=== PATIENT | male | born 1970 | race Caucasian/White ===

== ENCOUNTER 2020-08-23 13:15 | Inpatient (IN) | payer OTHER ==
[~2020-08-23] VITALS: Ht 170.2 cm; Wt 50.3 kg
--- NOTE | 2020-08-23 13:20 | NUR ---
ELISEO LEVY [facility],DISLODGED SUPRAPUBIC CATHETER 1 1/2 HR COAL PULVERIZER OPERATOR. ALERT AND ORIENTED X3. DENIES PAIN. BLADDER SOFT AND NON-DISTENDED. WILL CONTINUE TO MONITOR THE PATIENT.
--- NOTE | 2020-08-23 13:40 | NUR ---
SEEN AND EXAMINED BY .
--- NOTE | 2020-08-23 13:49 | NUR ---
CAVITY PUMP OPERATOR AT BEDSIDE FOR XRAY.
[2020-08-23 14:05] LABS: BASOPHILS # (AUTO) 0.2 /CMM (0.0-0.2); BASOPHILS % (AUTO) 2.2 % (0.0-2.0); EOSINOPHILS % (AUTO) 3.8 % (0.0-6.0); HEMATOCRIT 35 % (39-51); HEMOGLOBIN 10.9 g/dL (13.5-17.5); LYMPHOCYTES # (AUTO) 1.6 /CMM (0.8-4.8); LYMPHOCYTES % (AUTO) 21.1 % (20.0-44.0); MEAN CORPUSCULAR HGB CONC 31 g/dl (31.0-36.0); MEAN CORPUSCULAR VOLUME 100 fL (80-96); MONOCYTES # (AUTO) 1.2 /CMM (0.1-1.30); MONOCYTES % (AUTO) 16.3 % (2.0-12.0); NEUTROPHILS # (AUTO) 4.2 /CMM (1.8-8.9); NEUTROPHILS % (AUTO) 56.6 % (43.0-81.0); PLATELET COUNT (AUTO) 314 /CMM (150-450); RED BLOOD CELL COUNT(AUTO) 3.53 MIL/uL (4.5-6.0); WHITE BLOOD COUNT (AUTO) 7.4 K/uL (4.3-11.0)
[2020-08-23] MEDS ORDERED: DARB25DI SQ (14:10)
[2020-08-23] MEDS ORDERED: ATOR40TA PO (14:10)
[2020-08-23] MEDS ORDERED: METO25TA6 PO (14:10)
[2020-08-23] MEDS ORDERED: ACET325T53 PO (14:10)
[2020-08-23] MEDS ORDERED: INSU100V39 SQ (14:10)
[2020-08-23] MEDS ORDERED: MULT-439 PO (14:10)
[2020-08-23] MEDS ORDERED: ASPI-1169 PO (14:10)
[2020-08-23] MEDS ORDERED: METF-440 PO (14:10)
[2020-08-23] MEDS ORDERED: CRAN425C6 PO (14:10)
[2020-08-23] MEDS ORDERED: SIME80TA15 PO (14:10)
[2020-08-23] MEDS ORDERED: OXYC5CAP18 PO (14:10)
[2020-08-23] MEDS ORDERED: SEVE800T8 PO (14:10)
[2020-08-23] MEDS ORDERED: AMIN887L PO (14:10)
[2020-08-23] MEDS ORDERED: ASCO500C17 PO (14:10)
[2020-08-23] MEDS ORDERED: DEXT15DR6 OP (14:10)
[2020-08-23] MEDS ORDERED: ZINC220T4 PO (14:10)
[2020-08-23] MEDS ORDERED: ERGO500014 PO (14:10)
--- NOTE | 2020-08-23 14:11 | NUR ---
CALLED NURSING SUP FOR M/S BED.
[2020-08-23 14:14] LABS: CALCIUM, SERUM 8.8 mg/dL (8.5-10.1); CREATININE 3.6 mg/dL (0.6-1.3)
--- NOTE | 2020-08-23 14:30 | NUR ---
BED ASSIGNED= 107
--- NOTE | 2020-08-23 14:55 | NUR ---
ROOM GIVEN 107
--- NOTE | 2020-08-23 14:56 | NUR ---
CALLED EVAN FOR REPORT RN IS ON BREAK CALL BACK IN 15MINS
--- NOTE | 2020-08-23 15:23 | NUR ---
REPORT GIVEN TO MOHIT VALERO FOR ANA.
[2020-08-23] MEDS ORDERED: ONDANSETRON HCL/PF 4 MG/2 ML VIAL IVP PRN (17:00)
[2020-08-23] MEDS ORDERED: DEXTROSE 50%-WATER 50 ML DISP.SYRIN IV PRN ×2 (17:00→17:30)
[2020-08-23] MEDS ORDERED: ACETAMINOPHEN 325 MG TABLET PO PRN (17:00)
[2020-08-23] MEDS ORDERED: INSULIN REGULAR, HUMAN 100 UNIT/ML 3 ML VIAL SQ PRN (17:00)
[2020-08-23] MEDS ORDERED: METFORMIN 500 MG TABLET PO SCH (17:00)
[2020-08-23] MEDS ORDERED: Z GUARD REMEDY 2 OZ OINT TP PRN (17:00)
[2020-08-23] MEDS ORDERED: ENOXAPARIN SODIUM 40 MG/0.4 ML DISP.SYRIN SQ SCH (17:00)
[2020-08-23] MEDS ORDERED: BLOOD SUGAR DIAGNOSTIC 1 EACH STRIP IN SCH (18:00)
[2020-08-23 18:24] VITALS: BP 177/80
[2020-08-23] MEDS: BLOOD SUGAR DIAGNOSTIC 1 EACH STRIP IN SCH ×2 (18:27→22:04)
[2020-08-23] MEDS: SEVELAMER CARBONATE 800 MG TABLET PO SCH (18:32)
[2020-08-23] MEDS: HEPARIN SODIUM, PORCINE 5000 UNITS/1 ML VIAL SQ SCH (18:33)
[2020-08-23] MEDS: INSULIN ASPART/LISPRO 100 UNIT/ML CARTRIDGE SQ PRN ×2 (18:33→22:17)
[2020-08-23] MEDS: oxyCODONE IR immediate release 5 MG PO PRN (18:41)
--- NOTE | 2020-08-23 19:17 | NUR ---
PATIENT RECEIVED FROM ER AT 3:45 PM, VITAL SIGNS TAKE, SKIN ASSESSMENT COMPLETED. PATIENT SUPRAPUBIC CATHETER SITE CLOSED AND GAUZE DRESSING APPLIED. RIGHT AC # 18 INTACT AND PATENT. SAFETY PRECAUTIONS IMPLEMENTED, SIDE RAILS UP X2, CALL LIGHT WITHIN REACH, WILL ENDORSE CARE TO UPCOMING SHIFT.
[2020-08-23 20:00] VITALS: BP 156/79
--- NOTE | 2020-08-23 20:00 | NUR ---
RN NOTE RECEIVED PT IN BED A/A/O X3, PT IS ON RA SATING 96%, HAS UNLABORED BREATHING. SAFETY MEASURES IN PLACE..
[2020-08-23] MEDS: METOPROLOL TARTRATE 25 MG TABLET PO SCH (20:56)
[2020-08-23] MEDS ORDERED: ATORVASTATIN 40 MG TABLET PO SCH (22:00)
[2020-08-24 04:00] VITALS: BP 156/79
[2020-08-24 06:33] LABS: BASOPHILS # (AUTO) 0.1 /CMM (0.0-0.2); BASOPHILS % (AUTO) 1.8 % (0.0-2.0); EOSINOPHILS % (AUTO) 3.8 % (0.0-6.0); HEMATOCRIT 33 % (39-51); HEMOGLOBIN 10.6 g/dL (13.5-17.5); LYMPHOCYTES # (AUTO) 1.9 /CMM (0.8-4.8); LYMPHOCYTES % (AUTO) 23.9 % (20.0-44.0); MEAN CORPUSCULAR HGB CONC 32 g/dl (31.0-36.0); MEAN CORPUSCULAR VOLUME 99 fL (80-96); MONOCYTES # (AUTO) 1.4 /CMM (0.1-1.30); MONOCYTES % (AUTO) 17.5 % (2.0-12.0); NEUTROPHILS # (AUTO) 4.2 /CMM (1.8-8.9); PLATELET COUNT (AUTO) 286 /CMM (150-450); RED BLOOD CELL COUNT(AUTO) 3.33 MIL/uL (4.5-6.0); WHITE BLOOD COUNT (AUTO) 7.8 K/uL (4.3-11.0)
[2020-08-24 07:07] LABS: CALCIUM, SERUM 8.8 mg/dL (8.5-10.1); CREATININE 4.3 mg/dL (0.6-1.3); MAGNESIUM 3.2 mg/dL (1.8-2.4); PHOSPHORUS 5.5 mg/dL (2.5-4.9); POTASSIUM 4.6 mmol/L (3.5-5.1)
--- NOTE | 2020-08-24 07:25 | NUR ---
RN NOTE REPORT GIVEN TO ONCOMING SHIFT FOR ANA.
[2020-08-24] MEDS: BLOOD SUGAR DIAGNOSTIC 1 EACH STRIP IN SCH ×2 (07:50→12:31)
--- NOTE | 2020-08-24 07:56 | NUR ---
RN NOTES PATIENT EATING WELL, NO ASPIRATIONS NOTED, BS - 97 , SAFETY MEASURES IN PLACE, CALL LIGHT IN REACH, ABLE TO MAKE NEEDS KNOWN, WILL CONTINUE TO MONITOR.
[2020-08-24 08:00] VITALS: BP 154/87
[2020-08-24] MEDS: SEVELAMER CARBONATE 800 MG TABLET PO SCH ×2 (08:32→12:30)
[2020-08-24 08:33] VITALS: BP 154/87
[2020-08-24] MEDS: METOPROLOL TARTRATE 25 MG TABLET PO SCH (08:33)
[2020-08-24] MEDS: HEPARIN SODIUM, PORCINE 5000 UNITS/1 ML VIAL SQ SCH (08:40)
[2020-08-24] MEDS: oxyCODONE IR immediate release 5 MG PO PRN (12:41)
[2020-08-24 12:58] LABS: EOSINOPHILS % (MANUAL) 5 % (0-4); LYMPHOCYTES % (MANUAL) 25 % (16-48); MONOCYTES % (MANUAL) 11 % (0-11.0); NEUTROPHILS % (MANUAL) 59 (42-76)
--- NOTE | 2020-08-24 12:58 | NUR ---
PATIENT DISCHARGED, IN STABLE CONDITION, WITH AMBULANCE STAFF TO [facility]. PATIENT IN NO ACUTE DISTRESS. PATIENT IV ACCESS REMOVED. PATIENT BELONGINGS GIVEN. PATIENT DISCHARGE INSTRUCTIONS/PACKET GIVEN.
[2020-08-25] MEDS ORDERED: ASPIRIN 81 MG TAB.CHEW PO SCH (09:00)
[2020-08-27] MEDS ORDERED: ERGOCALCIFEROL (VITAMIN D 2) 50,000 UNIT CAPSULE PO SCH (09:00)
== END 2020-08-24 13:01 | DRG 466 ==
LOC: ER 13:22 → MEDSG1 15:32
PROVIDERS: ADMIT Nurse Practitioner Acute Care; ATTEND Nurse Practitioner Acute Care
PROC: 0T2BX0Z Change Drainage Device in Bladder, External Approach (ICD-10-PCS; principal; 2020-08-23)
DX: T83.098A Other mechanical complication of other urinary catheter, initial encounter (principal); J90 Pleural effusion, not elsewhere classified; E11.22 Type 2 diabetes mellitus with diabetic chronic kidney disease; I12.0 Hypertensive chronic kidney disease with stage 5 chronic kidney disease or end stage renal disease; Y73.8 Miscellaneous gastroenterology and urology devices associated with adverse incidents, not elsewhere classified; N18.6 End stage renal disease; D63.1 Anemia in chronic kidney disease; Z99.2 Dependence on renal dialysis; Z20.822 Contact with and (suspected) exposure to COVID-19; Z91.041 Radiographic dye allergy status; Z88.0 Allergy status to penicillin; Z91.040 Latex allergy status; Z90.79 Acquired absence of other genital organ(s); I70.0 Atherosclerosis of aorta; Z89.512 Acquired absence of left leg below knee
CPT/HCPCS: 36415; 71045-TC; 80048-TC; 80061-TC; 82962-TC; 83735-TC; 84100-TC; 85025-TC; 85730-TC; 87081-TC; A6403; C9803; G0378; J1644; J1815; U0003

== ENCOUNTER 2020-08-28 07:00 | Inpatient (IN) | payer OTHER ==
[~2020-08-28] VITALS: Ht 170.2 cm; Wt 50.8 kg
[~2020-08-28 07:00] MED LIST: ACET325T53 PO; AMIN887L PO; ASCO500C17 PO; ASPI-1169 PO; ATOR40TA PO; CRAN425C6 PO; DARB25DI SQ; DEXT15DR6 OP; ERGO500014 PO; INSU100V39 SQ; METF-440 PO; METO25TA6 PO; MULT-439 PO; OXYC5CAP18 PO; SEVE800T8 PO; SIME80TA15 PO; ZINC220T4 PO
--- NOTE | 2020-08-28 07:10 | NUR ---
BREANNA FROM [facility] C/O SUPRAPUBIC CATHETER MALFUNCTION PER EMT, BLOODY AT SITE. PATIENT AA/OX4, BREATHING EVEN AND UNLABORED, NO SOB NOTED. NEEDS ATTENDED. DR. LOZOYA AT BEDSIDE.
--- NOTE | 2020-08-28 07:30 | NUR ---
JONES CATHETER FLUSHED WITH 100CC OF NS.
[2020-08-28] MEDS ORDERED: LIDOCAINE 2% JEL UROJET 10 ML MM ONE (07:41)
--- NOTE | 2020-08-28 08:08 | NUR ---
URINE SENT TO LAB.
[2020-08-28 08:23] LABS: BASOPHILS # (AUTO) 0.1 /CMM (0.0-0.2); BASOPHILS % (AUTO) 1.2 % (0.0-2.0); EOSINOPHILS % (AUTO) 0.8 % (0.0-6.0); HEMATOCRIT 35 % (39-51); HEMOGLOBIN 10.8 g/dL (13.5-17.5); LYMPHOCYTES # (AUTO) 1.4 /CMM (0.8-4.8); LYMPHOCYTES % (AUTO) 14.6 % (20.0-44.0); MEAN CORPUSCULAR HGB CONC 31 g/dl (31.0-36.0); MEAN CORPUSCULAR VOLUME 99 fL (80-96); MONOCYTES # (AUTO) 1.2 /CMM (0.1-1.30); MONOCYTES % (AUTO) 12.7 % (2.0-12.0); NEUTROPHILS # (AUTO) 6.5 /CMM (1.8-8.9); NEUTROPHILS % (AUTO) 70.7 % (43.0-81.0); PLATELET COUNT (AUTO) 269 /CMM (150-450); RED BLOOD CELL COUNT(AUTO) 3.51 MIL/uL (4.5-6.0); WHITE BLOOD COUNT (AUTO) 9.2 K/uL (4.3-11.0)
[2020-08-28 08:38] LABS: BILIRUBIN,URINE SMALL (NEGATIVE); COLOR,URINE RED (YELLOW); LEUKOCYTE ESTERASE ,URINE Negative (NEGATIVE); NITRITE, URINE Positive (NEGATIVE); PH,URINE 7.5 (5.0-8.0); PROTEIN,URINE >=300 mg/dl (NEGATIVE); UGLUCOSE Negative (NEGATIVE); UROBILINOGEN,URINE 0.2 EU/dL (0.2)
[2020-08-28 08:40] LABS: RBC,URINE TOO NUMEROUS TO COUN /HPF (0-2)
[2020-08-28 08:40] LABS: CALCIUM, SERUM 9.2 mg/dL (8.5-10.1); CREATININE 5.6 mg/dL (0.6-1.3); POTASSIUM 5.9 mmol/L (3.5-5.1)
[2020-08-28 08:41] LABS: BACTERIA,URINE Few /HPF (None Seen); SQUAMOUS EPITHELIAL CELL,UR 0-2 /HPF (None Seen)
[2020-08-28 08:46] LABS: ALBUMIN 3.3 g/dL (3.4-5.0); BILIRUBIN,DIRECT 0.3 mg/dL (0.0-0.2); BILIRUBIN,TOTAL 0.6 mg/dL (0.2-1.0)
[2020-08-28] MEDS ORDERED: ASCO500T10 PO (09:42)
[2020-08-28] MEDS ORDERED: LOPE2TAB25 PO (09:42)
[2020-08-28] MEDS ORDERED: CALC500T13 PO (09:42)
[2020-08-28] MEDS ORDERED: POLY15DR40 EACHEYE (09:42)
[2020-08-28] MEDS ORDERED: GABA-532 PO (09:42)
[2020-08-28] MEDS ORDERED: ERGO500014 PO (09:42)
[2020-08-28] MEDS ORDERED: DIATRIZOATE MEGLUMINE 300 ML BOTTLE UR ONE (10:01)
--- NOTE | 2020-08-28 10:59 | NUR ---
CALLED DR. SHRESTHA FOR UROLOGY CONSULT. TALKING TO DR. LOZOYA AT THIS TIME.
--- NOTE | 2020-08-28 11:43 | NUR ---
CALLED [facility] FOR HIGHER LEVEL OF CARE TRANSFER. [facility] DOES NOT HAVE A UROLOGIST.
--- NOTE | 2020-08-28 11:47 | NUR ---
PATIENT A/OX4, RESTING, NO DISTRESS NOTED. NEEDS ATTENDED.
--- NOTE | 2020-08-28 12:05 | NUR ---
CALLED AND PRESENTED TO [facility] FOR HIGHER LEVEL OF TRANSFER. THEY ARE AWAITING CT SCAN AND COVID TEST RESULTS BEFORE PRESENTING.
--- NOTE | 2020-08-28 12:32 | NUR ---
[facility] TRANSFER CALLED AND ZOE CABALLERO IS PRESENTING TO [facility]
--- NOTE | 2020-08-28 12:46 | NUR ---
PAGED UROLOGY TIME STUDY TECHNOLOGIST
--- NOTE | 2020-08-28 12:57 | NUR ---
CALLED NURSING SUP FOR M/S BED.
--- NOTE | 2020-08-28 13:24 | NUR ---
JESSICA DECLINED THE CASE.
[2020-08-28] MEDS ORDERED: ACETAMINOPHEN 325 MG TABLET PO PRN ×2 (13:30)
[2020-08-28] MEDS ORDERED: Z GUARD REMEDY 2 OZ OINT TP PRN (13:30)
[2020-08-28] MEDS ORDERED: MAG HYDROX/AL HYDROX/SIMETH 30 ML UDC PO PRN (13:30)
[2020-08-28] MEDS ORDERED: ZOLPIDEM TARTRATE 5 MG TABLET PO PRN (13:30)
[2020-08-28] MEDS ORDERED: ONDANSETRON HCL/PF 4 MG/2 ML VIAL IVP PRN (13:30)
[2020-08-28] MEDS ORDERED: CALCIUM CARBONATE 500 MG TAB.CHEW PO PRN (13:30)
[2020-08-28] MEDS ORDERED: MAGNESIUM HYDROXIDE 30 ML UDC PO PRN (13:30)
[2020-08-28] MEDS ORDERED: SIMETHICONE 80 MG TAB.CHEW PO PRN (13:30)
[2020-08-28] MEDS ORDERED: LOPERAMIDE HCL (2 MG CAP) 2 MG CAPSULE PO PRN (14:00)
[2020-08-28] MEDS ORDERED: POLYVINYL ALCOHOL 15 ML BOTTLE OP PRN (14:00)
--- NOTE | 2020-08-28 14:01 | NUR ---
NEGATIVE RAPID COVID TEST.
--- NOTE | 2020-08-28 15:09 | NUR ---
PATIENT SEEN BY DR. PEÑA.
--- NOTE | 2020-08-28 15:30 | NUR ---
ROOM 120-2
--- NOTE | 2020-08-28 15:38 | NUR ---
REPORT GIVEN TO STORMY RUEDA FOR ANA.
[2020-08-28] MEDS ORDERED: ASPIRIN 81 MG TAB.CHEW PO SCH (16:00)
--- NOTE | 2020-08-28 16:08 | NUR ---
PATIENT TRANSFERRED TO ROOM 120-2 VIA ACLS PROTOCOL. PATIENT IN STABLE CONDITION. NO DISTRESS NOTED.
[2020-08-28 17:00] VITALS: BP 140/72
[2020-08-28] MEDS: CEFTRIAXONE 1 G in IV D5W 50 ML IV SCH (17:00)
[2020-08-28] MEDS ORDERED: METFORMIN 500 MG TABLET PO SCH (17:00)
[2020-08-28] MEDS: GABAPENTIN 300 MG CAPSULE PO SCH (17:01)
[2020-08-28] MEDS: HYDROCODONE/APAP 5/325MG TABLET PO PRN (17:02)
[2020-08-28] MEDS: SEVELAMER CARBONATE 800 MG TABLET PO SCH (18:00)
--- NOTE | 2020-08-28 19:30 | NUR ---
HOT MILL OPERATOR OPENING NOTE RECEIVED PATIENT IN BED/ A/OX4. ON OXYGEN 2L.MIN VIA NASAL CANNULA,. RESPIRATIONS ARE EVEN AND UNLABORED. NO S/S SOB NOTED. NO C/O PAIN AT THIS TIME. EXTERNAL TELE MONITOR READS SINUS RHYTHM HR 91. IN NO APPARENT DISTRESS. IV ACCESS IN RAC#18 PATENT AND SALINE LOCKED. SUPRAPUBIC CATHETER IS PRESENT, DRAINING TO GRAVITY, WITH HEMATURIA. BED IS LOW ND LOCKED, HOB ELEVATED IN SEMI FOWLERS,S GISEL RIALS UP X2, CALL LIGHT WITHIN REACH. WILL CONTINUE TO MONITOR THROUGHOUT SHIFT
[2020-08-28 20:00] VITALS: BP 148/81
[2020-08-28] MEDS: ATORVASTATIN 40 MG TABLET PO SCH (22:04)
[2020-08-28] MEDS: METOPROLOL TARTRATE 25 MG TABLET PO SCH (22:05)
[2020-08-29] VITALS: BP 147/83
[2020-08-29 04:00] VITALS: BP 149/91
--- NOTE | 2020-08-29 06:58 | NUR ---
PAYROLL AUDITOR CLOSING NOTE PATIENT RESTING IN BED/ A/OX4. REMAINS ON OXYGEN 2L/MIN VIA NASAL CANNULA NO RESP DISTRESS. NO C/O PAIN. TELE MONITOR READS SINUS RHYTHM. NO DISTRESS. IV ACCESS IN RAC#18. SUPRAPUBIC CATHETER IS MAINTAINED, IRRIGATED ONLY ONCE WITH 60ML NS. BED REMAINS LOW AND LOCKED, HOB ELEVATED IN SEMI FOWLERS, SIDE RIALS UP X2, CALL LIGHT WITHIN REACH. WILL ENDORSE TO ONCOMING SHIFT.
[2020-08-29 07:24] LABS: BASOPHILS # (AUTO) 0.1 /CMM (0.0-0.2); BASOPHILS % (AUTO) 1.4 % (0.0-2.0); EOSINOPHILS % (AUTO) 1.8 % (0.0-6.0); HEMATOCRIT 32 % (39-51); HEMOGLOBIN 10.1 g/dL (13.5-17.5); LYMPHOCYTES # (AUTO) 1.6 /CMM (0.8-4.8); LYMPHOCYTES % (AUTO) 16.8 % (20.0-44.0); MEAN CORPUSCULAR HGB CONC 32 g/dl (31.0-36.0); MEAN CORPUSCULAR VOLUME 98 fL (80-96); MONOCYTES # (AUTO) 1.1 /CMM (0.1-1.30); MONOCYTES % (AUTO) 11.7 % (2.0-12.0); NEUTROPHILS # (AUTO) 6.5 /CMM (1.8-8.9); NEUTROPHILS % (AUTO) 68.3 % (43.0-81.0); PLATELET COUNT (AUTO) 220 /CMM (150-450); RED BLOOD CELL COUNT(AUTO) 3.22 MIL/uL (4.5-6.0); WHITE BLOOD COUNT (AUTO) 9.5 K/uL (4.3-11.0)
[2020-08-29 07:46] LABS: CREATININE 5.9 mg/dL (0.6-1.3); MAGNESIUM 3.2 mg/dL (1.8-2.4); PHOSPHORUS 5.9 mg/dL (2.5-4.9)
[2020-08-29 07:56] LABS: POTASSIUM 6.4 mmol/L (3.5-5.1)
--- NOTE | 2020-08-29 08:00 | NUR ---
CHIEF DEPUTY CORONER CLOSING NOTE PATIENT RESTING IN BED/ A/OX4. REMAINS ON OXYGEN 2L/MIN VIA NASAL CANNULA NO RESP DISTRESS. NO C/O PAIN. TELE MONITOR READS SINUS RHYTHM. HR 82 AT THIS TIME , NO DISTRESS. IV ACCESS IN RAC#18. SUPRAPUBIC CATHETER IS MAINTAINED STILL WITH BLOODY DRAINAGE NOTED , . BED REMAINS LOW AND LOCKED, HOB ELEVATED IN SEMI FOWLERS, SIDE RIALS UP X2, CALL LIGHT WITHIN REACH. WILL MONITOR
[2020-08-29] MEDS ORDERED: MULTIVIT W/MINERALS 1 TAB TABLET PO SCH (09:00)
[2020-08-29] MEDS: GABAPENTIN 300 MG CAPSULE PO SCH ×2 (09:00→16:32)
[2020-08-29] MEDS ORDERED: ASCORBIC ACID 500 MG TABLET PO SCH (09:00)
[2020-08-29] MEDS ORDERED: Medication Not On Formulary EA (Cranberry Extract (Cranberry) 425 MG) PO SCH (09:00)
[2020-08-29] MEDS: METOPROLOL TARTRATE 25 MG TABLET PO SCH ×2 (09:07→21:49)
[2020-08-29] MEDS: SEVELAMER CARBONATE 800 MG TABLET PO SCH ×3 (09:08→17:15)
[2020-08-29] MEDS: ZINC SULFATE 220 MG CAPSULE PO SCH (09:08)
[2020-08-29] MEDS: PROSOURCE / PROSTAT (PYXIS) 30 ML UDC PO SCH (09:12)
--- NOTE | 2020-08-29 09:37 | NUR ---
STUDENT SUPPORT ADVISOR NOTE CALLED HD NURSE ANGEL NOTIFIED K 6.4 STATED THAT WILL HAVE HD SOON ALSO C\O PAIN WHILE IRRIGATE SUPRAPUBIC CATH NOTED STILL BLEEDING, WILL INFORM DR DONATO
[2020-08-29] MEDS ORDERED: NEPRO VAN 237 ML CAN PO PRN (10:00)
--- NOTE | 2020-08-29 10:30 | NUR ---
MS RN NOTE FLASHING SUPRAPUBIC CATH BUT UNABLE TO GET URINE OUTPUT, NO URINE OUT PUT SINE 0700, WILL REPORT TO DR DONATO
--- NOTE | 2020-08-29 10:31 | NUR ---
ms rn note dr Tovar notified that k 6.4 stated that will have hd today a
--- NOTE | 2020-08-29 10:52 | NUR ---
ms rn note hd started as ordered ,consent signed for hd
[2020-08-29] MEDS: oxyCODONE IR immediate release 5 MG PO PRN (13:18)
--- NOTE | 2020-08-29 13:26 | NUR ---
ms rn note hd completed 1.6 lof fluids removed bp 142/69 hr 73
--- NOTE | 2020-08-29 13:31 | NUR ---
ms rn note dr Gauthier at bedside aware of hematuria and when flushed suprapubic cath c\o pain
--- NOTE | 2020-08-29 15:26 | NUR ---
MS RN NOTE ABLE TO FLUSH SUPRAPUBIC CATH BUT STILL WITH HEMATURIA, ALL NEEDS ATTENDED ,KEEP CLEAN DRY
[2020-08-29] MEDS: CEFTRIAXONE 1 G in IV D5W 50 ML IV SCH (16:09)
--- NOTE | 2020-08-29 18:37 | NUR ---
MS AGENCY RECRUITER CLOSING NOTES; patient is in bed alert and orientated, patient refused dinner at this time and stated he would eat later. patient has wounds in heel and left leg stump. would consult order has been placed. Suprapubic catheter flushed, 150 ml noticed of hematuria. RAC Hep Lock in place and flushed well. All needs attended and call light within reach. All safety measures in place and will continue to monitor for remainder of shift.
--- NOTE | 2020-08-29 19:35 | NUR ---
RN OPENING NOTE REC'D PT IN BED. AWAKE. A/O X 4. COOPERATIVE. PT SLIGHT HARD OF HEARING AND DIFFICULTY SEEING NOTED. PT DENIES USE OF HEARING AID/GLASSES. PT IS ON 3L VIA NASAL CANNULA, TOLERATING WELL. NO RESP DISTRESS OR SOB NOTED. BREATHING EVEN AND UNLABORED. ON MED SURG MONITORING. ASSIST WITH FEEDINGS/FLUID INTAKE. PT HAS RIGHT AC #20 IV SITE FLUSHED. LEFT AV SHUNT NOTED, NO BP OR BLOOD DRAW LEFT ARM SIGN POSTED. PT HAS LEFT BELOW KNEE AMPUTATION NOTED. OPEN WOUND, LOOSELY COVERED SECURED WITH GAUZE, WOUND CONSULT FOR TOMORROW. HAS SUPRAPUBIC CATH, HEMATURIA NOTED. MD AWARE, UROLOGIST TO FOLLOW UP. PT C/O 5/10 PAIN AT THIS TIME, DENIES NEED FOR MEDICATION WILL CONT TO MONITOR. NEEDS ATTENDED. SAFETY MEASURES IN PLACE. HOB ELEVATED. SIDE RAILS UP X2, BED LOCKED IN LOWEST POSITION WITH BED ALARM ON. CALL LIGHT WITHIN REACH WILL CONT TO MONITOR THROUGHOUT SHIFT.
[2020-08-29 20:00] VITALS: BP 155/93
--- NOTE | 2020-08-29 21:00 | NUR ---
RN NOTE UROLOGIST DR SHRESTHA WAS AT BEDSIDE FOR IRRIGATION OF THE SUPRAPUBIC CATH, HEMATURIA NOTED, ASPIRATED CLOTS/SEDIMENT. NOW CATH FLUSHES WELL, CLEAR AT THIS TIME. [place] JONES BAG PLACED. WILL CONT TO MONITOR.
[2020-08-29] MEDS ORDERED: VANCOMYCIN HCL 1 GM in IV D5W 260 ML IV ONE (21:30)
[2020-08-29] MEDS: ATORVASTATIN 40 MG TABLET PO SCH (21:49)
[2020-08-29] MEDS ORDERED: VANCOMYCIN 1 GM VIAL ONE (22:00)
[2020-08-30] MEDS: oxyCODONE IR immediate release 5 MG PO PRN (01:40)
--- NOTE | 2020-08-30 01:40 | NUR ---
RN NOTE PT C/O PAIN 02/11, GENERALIZED PAIN REQUESTS OXYCODONE AT THIS TIME. VITAL SIGNS BP 144/79 HR 73 02 SAT 99% WILL CONT TO MONITOR CLOSELY.
--- NOTE | 2020-08-30 03:35 | NUR ---
RN NOTE PT SLEEPING AT THIS TIME. NO DISTRESS NOTED. PT DEFERS BED BATH AT THIS TIME.
[2020-08-30 04:00] VITALS: BP 131/64
--- NOTE | 2020-08-30 05:13 | NUR ---
MOHIT NOTE WOUND CARE DONE Addendum: 08/30/20 at 0514 by SHIKHA JUSTIN RN DRESSING REDONE KERLIX AND GAUZE PLACED SECURED WITH PAPER TAPE ON RIGHT HEEL AND FOOT AND LEFT BKA, PENDING WOUND CONSULT FOR AM
[2020-08-30 06:36] LABS: BASOPHILS # (AUTO) 0.1 /CMM (0.0-0.2); BASOPHILS % (AUTO) 1.3 % (0.0-2.0); EOSINOPHILS % (AUTO) 2.3 % (0.0-6.0); HEMATOCRIT 31 % (39-51); HEMOGLOBIN 9.9 g/dL (13.5-17.5); LYMPHOCYTES # (AUTO) 1.5 /CMM (0.8-4.8); MEAN CORPUSCULAR HGB CONC 32 g/dl (31.0-36.0); MEAN CORPUSCULAR VOLUME 97 fL (80-96); MONOCYTES # (AUTO) 1.3 /CMM (0.1-1.30); MONOCYTES % (AUTO) 13.9 % (2.0-12.0); NEUTROPHILS # (AUTO) 6.1 /CMM (1.8-8.9); NEUTROPHILS % (AUTO) 66.5 % (43.0-81.0); PLATELET COUNT (AUTO) 210 /CMM (150-450); RED BLOOD CELL COUNT(AUTO) 3.16 MIL/uL (4.5-6.0); WHITE BLOOD COUNT (AUTO) 9.2 K/uL (4.3-11.0)
--- NOTE | 2020-08-30 06:41 | NUR ---
RN CLOSING NOTES PT REMAINS IN BED RESTING. PT STILL REMAINS ON 2L OF O2, NO S/S OF RESP DISTRESS OR SOB. ALL NEEDS ATTENDED. ALL DUE MEDICATIONS GIVEN. PT REMAINS AFEBRILE. WILL CONT TO MONITOR UNTIL END OF SHIFT, REPORT GIVEN TO BROWN EsparzaW WEB WORKER. PT TO BE TRANSPORTED AT END OF SHIFT. PT MADE AWARE, COMPLIANT.
[2020-08-30 07:19] LABS: ALBUMIN 2.9 g/dL (3.4-5.0); BILIRUBIN,TOTAL 0.7 mg/dL (0.2-1.0); CALCIUM, SERUM 8.9 mg/dL (8.5-10.1); CREATININE 4.4 mg/dL (0.6-1.3); MAGNESIUM 2.7 mg/dL (1.8-2.4); PHOSPHORUS 4.9 mg/dL (2.5-4.9); POTASSIUM 4.7 mmol/L (3.5-5.1); TOTAL PROTEIN, SERUM 8.1 g/dL (6.4-8.2)
--- NOTE | 2020-08-30 07:30 | NUR ---
RN OPENING NOTE PATIENT RECEIVED ALERT, ORIENTED. OXYGEN CONTINUES AT 2 L/MIN VIA NASAL CANNULA. NO S/S OF DISCOMFORT OR DISTRESS. WILL HAVE WOUND CONSULT LATER TODAY. NEEDS MET AT THIS TIME. WILL CONTINUE CARE PER ORDERS.
[2020-08-30 08:00] VITALS: BP 110/58
--- NOTE | 2020-08-30 08:27 | NUR ---
WOUND CARE CONSULT: PT PRESENTS WITH MULTIPLE SKIN ISSUES INCLUDING DRY ESCHAR TO RT HEEL AND DORSAL FOOT, LEFT BELOW KNEE AMPUTATION SURGICAL SITE, SACRAL INTACT DEEP TISSUE INJURY AND LEFT HIP SCAR, PRESENT ON ADMISSION. RECOMMEND DPM CONSULT. DR MCDONALD NOTIFIED OF CONSULT REQUEST. RECOMMENDATIONS MADE FOR SKIN PROTECTION. DISCUSSED WITH NURSING STAFF. PT IS ON HEATH ISOFLEX LOW AIRLOSS BED. IN AGREEMENT WITH PLAN OF CARE. Addendum: 08/30/20 at 0828 by HUMPHREY MURPHY WNDNU Amended: Links added.
[2020-08-30] MEDS: SEVELAMER CARBONATE 800 MG TABLET PO SCH ×3 (09:12→17:43)
[2020-08-30] MEDS: ZINC SULFATE 220 MG CAPSULE PO SCH (09:13)
[2020-08-30] MEDS: GABAPENTIN 300 MG CAPSULE PO SCH ×2 (09:13→17:43)
[2020-08-30] MEDS: METOPROLOL TARTRATE 25 MG TABLET PO SCH ×2 (09:13→22:09)
[2020-08-30] MEDS: PROSOURCE / PROSTAT (PYXIS) 30 ML UDC PO SCH (09:24)
[2020-08-30 15:54] VITALS: BP 144/80
[2020-08-30 16:00] VITALS: BP 114/71
[2020-08-30] MEDS: CEFTRIAXONE 1 G in IV D5W 50 ML IV SCH (17:43)
--- NOTE | 2020-08-30 18:57 | NUR ---
RN CLOSING NOTE PATIENT RESTING IN BED. NO S/S OF DISCOMFORT OR DISTRESS. ASSISTED WITH ADL'S NEEDED. MINIMAL AMOUNT OF URINE FROM SUPRAPUBIC CATHETER. WOUND CARE CONSULT COMPLETED WITH NOW ORDERS RECEIVED AND CARRIED. GOOD APPETITE. ALL MEDICATIONS GIVEN PER ORDER. NEEDS MET AT THIS TIME. WILL ENDORSE TO NIGHT NURSE FOR ANA.
[2020-08-30 20:00] VITALS: BP 146/79
[2020-08-30] MEDS: ATORVASTATIN 40 MG TABLET PO SCH (22:08)
[2020-08-30] MEDS: HYDROCODONE/APAP 5/325MG TABLET PO PRN (22:27)
[2020-08-31 06:27] LABS: BASOPHILS # (AUTO) 0.1 /CMM (0.0-0.2); BASOPHILS % (AUTO) 1.2 % (0.0-2.0); EOSINOPHILS % (AUTO) 4.9 % (0.0-6.0); HEMATOCRIT 29 % (39-51); HEMOGLOBIN 9.1 g/dL (13.5-17.5); LYMPHOCYTES # (AUTO) 1.7 /CMM (0.8-4.8); LYMPHOCYTES % (AUTO) 20.5 % (20.0-44.0); MEAN CORPUSCULAR HGB CONC 32 g/dl (31.0-36.0); MEAN CORPUSCULAR VOLUME 97 fL (80-96); MONOCYTES # (AUTO) 1.4 /CMM (0.1-1.30); MONOCYTES % (AUTO) 16.8 % (2.0-12.0); NEUTROPHILS # (AUTO) 4.7 /CMM (1.8-8.9); NEUTROPHILS % (AUTO) 56.6 % (43.0-81.0); PLATELET COUNT (AUTO) 217 /CMM (150-450); RED BLOOD CELL COUNT(AUTO) 2.94 MIL/uL (4.5-6.0); WHITE BLOOD COUNT (AUTO) 8.4 K/uL (4.3-11.0)
--- NOTE | 2020-08-31 06:50 | NUR ---
MS RN NOTES AWAKE & RESPONSIVE. NOT IN ANY DISTRESS. NO SOB NOTED. DENIES ANY PAIN OR DISCOMFORT AT THIS TIME. WITH IV-HL PATENT & INTACT. AM CARE DONE. MONITORED ACCORDINGLY. CALL LIGHT WITHIN REACH. BED IN LOWEST POSITION. SR UP X 2 FOR SAFETY. WILL ENDORSE TO NEXT SHIFT.
[2020-08-31 07:21] LABS: CALCIUM, SERUM 8.7 mg/dL (8.5-10.1); CREATININE 5.4 mg/dL (0.6-1.3); MAGNESIUM 2.7 mg/dL (1.8-2.4); PHOSPHORUS 5.8 mg/dL (2.5-4.9); POTASSIUM 4.9 mmol/L (3.5-5.1)
--- NOTE | 2020-08-31 07:29 | NUR ---
RN OPENING NOTE REC'D PT IN BED. AWAKE. A/O X 4. COOPERATIVE. PT IS ON 2L VIA NASAL CANNULA, TOLERATING WELL. NO RESP DISTRESS OR SOB NOTED. BREATHING EVEN AND UNLABORED. PT HAS RIGHT AC #20 IV SITE PATENT AND INTACT. LEFT AV SHUNT NOTED, NO BP OR BLOOD DRAW LEFT ARM SIGN POSTED. PT HAS LEFT BELOW KNEE AMPUTATION NOTED. OPEN WOUND, LOOSELY COVERED SECURED WITH GAUZE. HAS SUPRAPUBIC CATH. . SAFETY MEASURES IN PLACE. HOB ELEVATED. SIDE RAILS UP X2, BED LOCKED IN LOWEST POSITION WITH BED ALARM ON. CALL LIGHT WITHIN REACH WILL CONT TO MONITOR THROUGHOUT SHIFT
[2020-08-31 08:00] VITALS: BP_SYST 151
[2020-08-31] MEDS: ZINC SULFATE 220 MG CAPSULE PO SCH (08:09)
[2020-08-31] MEDS: SEVELAMER CARBONATE 800 MG TABLET PO SCH ×2 (08:09→12:15)
[2020-08-31 08:10] VITALS: BP 151/78
[2020-08-31] MEDS: METOPROLOL TARTRATE 25 MG TABLET PO SCH (08:10)
[2020-08-31] MEDS: GABAPENTIN 300 MG CAPSULE PO SCH (08:10)
[2020-08-31] MEDS: PROSOURCE / PROSTAT (PYXIS) 30 ML UDC PO SCH (08:41)
[2020-08-31] MEDS ORDERED: SILVER SULFADIAZINE 50 GM JAR TP SCH (09:00)
[2020-08-31 10:08] LABS: EOSINOPHILS % (MANUAL) 3 % (0-4); LYMPHOCYTES % (MANUAL) 25 % (16-48); MONOCYTES % (MANUAL) 18 % (0-11.0); NEUTROPHILS % (MANUAL) 54 (42-76)
--- NOTE | 2020-08-31 11:00 | NUR ---
RN NOTES PATIENT WAS SEEN BY FORESTRY AIDE TODAY; WOUND TREATMENT AND DRESSING CHANGES DONE. PATIENT TOLERATED PROCEDURE. LOWER EXTREMITIES OFFLOADED APPLICABLE. WILL CONTINUE TO MONITOR.
--- NOTE | 2020-08-31 15:53 | NUR ---
RN NOTES PATIENT REPORT GIVEN TO MOHIT GAMING, AT [facility].
--- NOTE | 2020-08-31 16:24 | NUR ---
PLYWOOD PATCHER NOTE RECEIVED ORDER FOR DISCHARGE. PATIENT IS A/O X 4. BREATHING EVENLY AND UNLABORED ON 2 LPM VIA NASAL CANNULA. PATIENT WILL BE RETURNING TO [facility]. REPORT WAS GIVEN. REMOVED IV CATHETER PATIENT TOLERATED WELL. PATIENT INSISTED NOT TO HAVE DISCHARGE WOUND PICTURES BOX ESTIMATOR HAD JUST DONE THE DRESSING CHANGES. PATIENT LEFT IN STABLE CONDITION. CHARGE NURSE AND MD AWARE.
[2020-08-31] MEDS ORDERED: SULFAMETH/TRIMETH 800/160 MG 1 UDTAB TABLET PO SCH (17:00)
[2020-09-03] MEDS ORDERED: ERGOCALCIFEROL (VITAMIN D 2) 50,000 UNIT CAPSULE PO SCH (09:00)
[2020-09-04] MEDS ORDERED: EPOETIN ALFA (4000 UNIT) 4,000 UNIT/ML VIAL SQ SCH (15:00)
== END 2020-08-31 16:30 | DRG 463 ==
LOC: ER 07:02 → TELE1 15:32 → MEDSG1 08-29 08:09 → MED 08-30 06:59
PROVIDERS: ADMIT Family Medicine
PROC: 5A1D70Z Performance of Urinary Filtration, Intermittent, Less than 6 Hours Per Day (ICD-10-PCS; 2020-08-29)
PROC: 0JBQ0ZZ Excision of Right Foot Subcutaneous Tissue and Fascia, Open Approach (ICD-10-PCS; principal; 2020-08-30)
PROC: 0JBP0ZZ Excision of Left Lower Leg Subcutaneous Tissue and Fascia, Open Approach (ICD-10-PCS; 2020-08-30)
DX: N30.91 Cystitis, unspecified with hematuria (principal); E11.22 Type 2 diabetes mellitus with diabetic chronic kidney disease; R18.8 Other ascites; E11.40 Type 2 diabetes mellitus with diabetic neuropathy, unspecified; N18.6 End stage renal disease; E44.1 Mild protein-calorie malnutrition; E11.3299 Type 2 diabetes mellitus with mild nonproliferative diabetic retinopathy without macular edema, unspecified eye; N25.0 Renal osteodystrophy; E87.5 Hyperkalemia; K21.9 Gastro-esophageal reflux disease without esophagitis; Z86.73 Personal history of transient ischemic attack (TIA), and cerebral infarction without residual deficits; Z99.2 Dependence on renal dialysis; E11.621 Type 2 diabetes mellitus with foot ulcer; E11.622 Type 2 diabetes mellitus with other skin ulcer; D63.8 Anemia in other chronic diseases classified elsewhere; I12.9 Hypertensive chronic kidney disease with stage 1 through stage 4 chronic kidney disease, or unspecified chronic kidney disease; Z20.822 Contact with and (suspected) exposure to COVID-19; N13.9 Obstructive and reflux uropathy, unspecified; Z88.0 Allergy status to penicillin; Z91.041 Radiographic dye allergy status; Z91.040 Latex allergy status; Z79.4 Long term (current) use of insulin; Z79.82 Long term (current) use of aspirin; Z79.899 Other long term (current) drug therapy; E78.5 Hyperlipidemia, unspecified; I70.0 Atherosclerosis of aorta; L97.419 Non-pressure chronic ulcer of right heel and midfoot with unspecified severity; M85.80 Other specified disorders of bone density and structure, unspecified site; N42.89 Other specified disorders of prostate; J98.11 Atelectasis; K82.8 Other specified diseases of gallbladder; E88.09 Other disorders of plasma-protein metabolism, not elsewhere classified; E11.65 Type 2 diabetes mellitus with hyperglycemia; Z90.79 Acquired absence of other genital organ(s); Z87.2 Personal history of diseases of the skin and subcutaneous tissue; N32.0 Bladder-neck obstruction; N32.89 Other specified disorders of bladder; B96.1 Klebsiella pneumoniae [K. pneumoniae] as the cause of diseases classified elsewhere; B95.62 Methicillin resistant Staphylococcus aureus infection as the cause of diseases classified elsewhere
CPT/HCPCS: 36415; 72193-TC; 80048-TC; 80053-TC; 80061-TC; 80076-TC; 81001; 82962-TC; 83690-TC; 83735-TC; 84100-TC; 85025-TC; 87081-TC; 87086-TC; 87186-TC; 90935-TC; 94799-TC; A6253; A9698; C9803; G0378; J0696; J3370; J3490; J7060; U0003

== ENCOUNTER 2021-07-27 18:20 | Emergency (ER) | payer MEDICARE, OTHER ==
[~2021-07-27] VITALS: Ht 160 cm; Wt 64.0 kg
[~2021-07-27 18:20] MED LIST changes: -ASCO500C17 PO; +ASCO500T10 PO; +CALC500T13 PO; -DEXT15DR6 OP; -ERGO500014 PO; +ERGO500093 PO; +GABA-532 PO; +LOPE2TAB25 PO; +POLY15DR40 EACHEYE
--- NOTE | 2021-07-27 18:59 | NUR ---
PT BIBRA FROM [facility], C/O LEFT ARM NUMBNESS AND TINGLING STARTED YESTURDAY AFTER DIALYSIS.PT IS A/O X4. CONNECTED TO MONITOR.
[2021-07-27 21:06] LABS: BASOPHILS # (AUTO) 0.1 K/uL (0.0-0.2); BASOPHILS % (AUTO) 1.4 % (0.0-2.0); EOSINOPHILS % (AUTO) 4.3 % (0.0-6.0); HEMATOCRIT 28 % (39-51); LYMPHOCYTES # (AUTO) 1.3 K/uL (0.8-4.8); LYMPHOCYTES % (AUTO) 22.8 % (20.0-44.0); MEAN CORPUSCULAR HGB CONC 32 g/dl (31.0-36.0); MEAN CORPUSCULAR VOLUME 88 fL (80-96); MONOCYTES # (AUTO) 0.7 K/uL (0.1-1.30); MONOCYTES % (AUTO) 12.8 % (2.0-12.0); NEUTROPHILS # (AUTO) 3.2 K/uL (1.8-8.9); NEUTROPHILS % (AUTO) 58.7 % (43.0-81.0); PLATELET COUNT (AUTO) 308 K/uL (150-450); RED BLOOD CELL COUNT(AUTO) 3.22 MIL/uL (4.5-6.0); WHITE BLOOD COUNT (AUTO) 5.5 K/uL (4.3-11.0)
--- NOTE | 2021-07-27 21:37 | NUR ---
FOLLOWED UP WITH [facility] REGARDING ARTERIAL STUDY
[2021-07-27] MEDS ORDERED: HYDROCODONE/APAP 5/325MG TABLET PO ONE (22:00)
--- NOTE | 2021-07-27 22:10 | NUR ---
FOLLOWED UP WITH LAB REGARDING BMP
[2021-07-27] MEDS ORDERED: HYDROCODONE/APAP 5/325MG TABLET ONE (22:30)
[2021-07-27 23:04] LABS: CREATININE 6.9 mg/dL (0.6-1.3); POTASSIUM 4.1 mmol/L (3.5-5.1)
--- NOTE | 2021-07-28 00:37 | NUR ---
CHERIE STONE WAS INFORMED AND AWARE THAT THE PATIENT IS COMING BACK TO THE FACILITY.
--- NOTE | 2021-07-28 01:00 | NUR ---
PT LEFT ON GURNEY WITH 2 EMT ON STABLE CONDITION. NAD NOTED. REPORT GIVEN
[2021-07-28 01:51] VITALS: BP 122/85
[2021-07-28 10:17] LABS: CALCIUM, SERUM 8.9 mg/dL (8.5-10.1)
[2021-07-29] MEDS ORDERED: INSU100V36 SQ (11:32)
[2021-07-29] MEDS ORDERED: INSU100I26 SQ (11:32)
[2021-07-29] MEDS ORDERED: MIRT-73 PO (11:32)
[2021-07-29] MEDS ORDERED: ERGO800011 PO (11:32)
== END 2021-07-28 01:00 ==
LOC: ER 18:25
DX: M79.89 Other specified soft tissue disorders (principal); E11.22 Type 2 diabetes mellitus with diabetic chronic kidney disease; I12.0 Hypertensive chronic kidney disease with stage 5 chronic kidney disease or end stage renal disease; N18.6 End stage renal disease; Z99.2 Dependence on renal dialysis; Z20.822 Contact with and (suspected) exposure to COVID-19; Z79.84 Long term (current) use of oral hypoglycemic drugs; Z79.4 Long term (current) use of insulin; Z86.73 Personal history of transient ischemic attack (TIA), and cerebral infarction without residual deficits; E78.5 Hyperlipidemia, unspecified; Z90.79 Acquired absence of other genital organ(s); Z88.0 Allergy status to penicillin; Z91.041 Radiographic dye allergy status; Z91.040 Latex allergy status; E11.319 Type 2 diabetes mellitus with unspecified diabetic retinopathy without macular edema; Z89.512 Acquired absence of left leg below knee; D64.9 Anemia, unspecified; I70.208 Unspecified atherosclerosis of native arteries of extremities, other extremity
CPT/HCPCS: 36415; 80048-TC; 85025-TC; 93930-TC; 93971-TC; C9803

== ENCOUNTER 2021-07-29 09:18 | Inpatient (IN) | payer MEDICARE, OTHER ==
[~2021-07-29] VITALS: Ht 160 cm; Wt 68.0 kg
--- NOTE | 2021-07-29 09:22 | NUR ---
BREANNA FROM [facility] C/O BLOOD IN THE STOOL STARTED 7AM TODAY, GIVEN NORCO 5/325, MISSED DIALYSIS YESTERDAY, ALSO C/O LEFT SHOULD AND ARM PAIN. AAOX4, BREATHING EVEN AND NON LABORED, CONNECTED TO MONITOR
[2021-07-29] MEDS ORDERED: IV NS 0.9% 500 ML BAG IV ONE (09:30)
[2021-07-29 09:45] LABS: BASOPHILS % (AUTO) 0.4 % (0.0-2.0); HEMATOCRIT 30 % (39-51); HEMOGLOBIN 9.4 g/dL (13.5-17.5); LYMPHOCYTES # (AUTO) 0.3 K/uL (0.8-4.8); LYMPHOCYTES % (AUTO) 2.8 % (20.0-44.0); MEAN CORPUSCULAR HGB CONC 32 g/dl (31.0-36.0); MEAN CORPUSCULAR VOLUME 89 fL (80-96); MONOCYTES # (AUTO) 1.2 K/uL (0.1-1.30); MONOCYTES % (AUTO) 11.5 % (2.0-12.0); NEUTROPHILS # (AUTO) 9.2 K/uL (1.8-8.9); NEUTROPHILS % (AUTO) 85.3 % (43.0-81.0); PLATELET COUNT (AUTO) 306 K/uL (150-450); WHITE BLOOD COUNT (AUTO) 10.8 K/uL (4.3-11.0)
--- NOTE | 2021-07-29 10:05 | NUR ---
DR JOYNER AT BEDSIDE TALKING TO THE PATIENT
[2021-07-29 10:11] LABS: ALBUMIN 3.3 g/dL (3.4-5.0); BILIRUBIN,DIRECT 0.4 mg/dL (0.0-0.2); BILIRUBIN,TOTAL 0.9 mg/dL (0.2-1.0); CALCIUM, SERUM 9.1 mg/dL (8.5-10.1); POTASSIUM 4.2 mmol/L (3.5-5.1); TOTAL PROTEIN, SERUM 8.3 g/dL (6.4-8.2)
[2021-07-29] MEDS ORDERED: ONDANSETRON HCL/PF 4 MG/2 ML VIAL IVP PRN (11:00)
[2021-07-29] MEDS ORDERED: Z GUARD REMEDY 4 OZ OINT TP PRN (11:00)
[2021-07-29] MEDS ORDERED: MAG HYDROX/AL HYDROX/SIMETH 30 ML UDC PO PRN (11:00)
[2021-07-29] MEDS ORDERED: MAGNESIUM HYDROXIDE 30 ML UDC PO PRN (11:00)
[2021-07-29] MEDS ORDERED: DEXTROSE 50%-WATER 50 ML DISP.SYRIN IV PRN (11:00)
[2021-07-29] MEDS ORDERED: PANTOPRAZOLE 40 MG VIAL IV ONE (11:00)
[2021-07-29] MEDS ORDERED: INSULIN REGULAR, HUMAN 100 UNIT/ML 3 ML VIAL SQ PRN (11:00)
[2021-07-29] MEDS: PANTOPRAZOLE 40 MG VIAL IV SCH ×2 (11:00→17:42)
[2021-07-29] MEDS ORDERED: ACETAMINOPHEN 325 MG TABLET PO PRN (11:00)
[2021-07-29] MEDS ORDERED: PANTOPRAZOLE 40 MG VIAL ONE (11:10)
--- NOTE | 2021-07-29 11:14 | NUR ---
COVID SWAB DONE AND SENT TO LAB
[2021-07-29] MEDS ORDERED: INSU100I26 SQ (11:32)
[2021-07-29] MEDS ORDERED: ERGO800011 PO (11:32)
[2021-07-29] MEDS ORDERED: MIRT-73 PO (11:32)
[2021-07-29] MEDS ORDERED: INSU100V36 SQ (11:32)
[2021-07-29] MEDS ORDERED: oxyCODONE IR immediate release 5 MG ONE (11:46)
[2021-07-29] MEDS: oxyCODONE IR immediate release 5 MG PO PRN ×3 (12:01→17:53)
[2021-07-29] MEDS: BLOOD SUGAR DIAGNOSTIC 1 EACH STRIP VI SCH ×3 (12:10→22:55)
[2021-07-29] MEDS: *INSULIN REGULAR(HUMULIN R)HUM 100 UNIT/ML VIAL SQ PRN ×2 (12:12→22:58)
--- NOTE | 2021-07-29 13:36 | NUR ---
[facility] BED. 309-1
--- NOTE | 2021-07-29 14:15 | NUR ---
CALLED TO GIVE REPORT, NURSE IS CURRENTLY DISCHARGING A PATIENT. WILL ATTEMP AGAIN LATER.
--- NOTE | 2021-07-29 14:49 | NUR ---
REPORT GIVEN TO CHINO FOR ANA
--- NOTE | 2021-07-29 15:08 | NUR ---
pt trasnsported to 309 in stable condition with acls protocols in place
--- NOTE | 2021-07-29 15:10 | NUR ---
RN NOTES PATIENT [facility]SFERR[facility] UNIT AT ROOM [facility] [facility] [facility] ACCOMPANIED BY 2 ER NURSES.
[2021-07-29] MEDS: MORPHINE SULFATE INJ 2 MG/ML DISP.SYRIN IV PRN ×2 (15:44→21:41)
--- NOTE | 2021-07-29 15:51 | NUR ---
RN NOTES PATIENT REQUESTED MORPHINE FOR GENERALIZED/ABD PAIN RATED 8/10; ADMINISTERED INDICATED. PATIENT PROVIDED W/ WATER AND DIET CLEAR SODA, TAKEN BY PATIENT; NO NAUSEA/VOMITING OBSERVED. JULIA AV SHUNT INTACT W/ POSITIVE BRUIT/THRILL. PATIENT W/ SUPRAPUBIC CATHETER IN PLACE.
--- NOTE | 2021-07-29 15:56 | NUR ---
RN NOTES PATIENT STATES THAT HE DOES NOT HAVE ANY SKIN ISSUES AND NO PICTURES NEED TO BE TAKEN.
[2021-07-29 16:00] VITALS: BP 94/59
[2021-07-29] MEDS ORDERED: GABAPENTIN 100 MG CAPSULE PO SCH (17:00)
--- NOTE | 2021-07-29 18:55 | NUR ---
RN NOTES ADMITTED THIS PATIENT FROM ER COMING FROM [facility] W/ REPORT OF BLOOD IN STOOL IN AM AT [facility], NONE REPORTED AT THIS TIME, W/ ADDITIONAL COMPLAINT OF ABDOMINAL AND LUE PAIN. PATIENT IS AWAKE, VERBALLY RESPONSIVE, AND A/O X3-4, NOT IN ACUTE DISTRESS. BREATHING EVEN AND UNLABORED ON ROOM AIR. NOTED W/ AV SHUNT ON JULIA AND IV LINE ON RFA #18. PATIENT HAS SUPRAPUBIC CATH AND HAS RIGHT BKA. PATIENT IS UNABLE TO AMBULATE AND REPORTS LUE WEAKNESS. SAFETY MEASURES IN PLACE. CALL LIGHT PLACED W/IN REACH OF PATIENT FOR STAFF ASSISTANCE. WILL ENDORSE TO ROUTE RIDER RN FOR ANA.
--- NOTE | 2021-07-29 19:30 | NUR ---
RN opening notes Pt is laying in bed awake. Pt is alert and orientedX3. Pt speaks Divehi and able to make needs known. On room air. No SOB. No S/s of distress noted. RFA# 18 is clean, intact and SL. JULIA AV shunt is in placed. Suprapubic cath is in placed. Safety precautions is maintained. Bed at low position, breaks locked, side rails upX3, hob elevated and call light is within reach. Will continue to monitor.
[2021-07-29 20:00] VITALS: BP 105/66
[2021-07-30] MEDS: oxyCODONE IR immediate release 5 MG PO PRN (00:13)
--- NOTE | 2021-07-30 00:13 | NUR ---
RN notes Pt is having pain on abdomen scale 7/10 on pain scale and requesting pain meds. administered oxy IR 5 mg/po/prn as ordered. Will continue to monitor.
--- NOTE | 2021-07-30 00:30 | NUR ---
RN notes Pt is having fresh blood on his stool small. Informed and notified Dr. Rai and also informed that Pt is admitted for hematochezia. Awaiting for new orders. Charge nurse is aware and informed.
--- NOTE | 2021-07-30 02:31 | NUR ---
RN notes Received order from Dr. Rai for stat CBC.
--- NOTE | 2021-07-30 02:33 | NUR ---
RN notes Called and spoke with Maurizio mcdaniels for stat CBC.
[2021-07-30] MEDS: MORPHINE SULFATE INJ 2 MG/ML DISP.SYRIN IV PRN (03:00)
[2021-07-30 03:08] LABS: BASOPHILS % (AUTO) 0.3 % (0.0-2.0); HEMATOCRIT 28 % (39-51); HEMOGLOBIN 8.8 g/dL (13.5-17.5); LYMPHOCYTES # (AUTO) 0.4 K/uL (0.8-4.8); LYMPHOCYTES % (AUTO) 9.4 % (20.0-44.0); MEAN CORPUSCULAR HGB CONC 31 g/dl (31.0-36.0); MEAN CORPUSCULAR VOLUME 90 fL (80-96); MONOCYTES # (AUTO) 0.3 K/uL (0.1-1.30); MONOCYTES % (AUTO) 7.4 % (2.0-12.0); NEUTROPHILS # (AUTO) 3.5 K/uL (1.8-8.9); NEUTROPHILS % (AUTO) 82.9 % (43.0-81.0); PLATELET COUNT (AUTO) 308 K/uL (150-450); RED BLOOD CELL COUNT(AUTO) 3.14 MIL/uL (4.5-6.0); WHITE BLOOD COUNT (AUTO) 4.3 K/uL (4.3-11.0)
--- NOTE | 2021-07-30 05:45 | NUR ---
RN notes Rapid response was called. Found Pt unresponsive. Rapid response was initiated.
--- NOTE | 2021-07-30 05:50 | NUR ---
RN notes Code blue was called. Found Pt unresponsive, cold and no pulses. CPR started, crush cart at the bedside. ER MD, DR. Monge, RT's (Barbara, Kevyn, CECILIA, Anna), ER/RN - MOHIT Rivera, MOHIT Jordan, ER/EMT-Vicente Handley- MOHIT Marr, Charge nurse-Deja RN, Primary nurse-MOHIT Reyna, ICU nurse-ED, RN, RN's- MOHIT Self, Jessica RN, Nikolas RN, Deborah, RN at the bedside.
--- NOTE | 2021-07-30 06:04 | NUR ---
RN notes Pt's reading on monitor was S. tachy. ER MD Ordered to transferred Pt to ICU to room 256.
--- NOTE | 2021-07-30 06:10 | NUR ---
RN notes Transferred Pt to ICU room 256 with Primary RN, Two RT's and House Sup.
--- NOTE | 2021-07-30 06:15 | NUR ---
RN notes Report given to ICU nurse ED, RN for ANA.
--- NOTE | 2021-07-30 06:20 | NUR ---
RT Notes Pt orally intubated by with 7.5 ETT secured 25cm at the lip line at @0558. CO2 color change noted. Mist in tube noted. Equal breath sounds and chest rise noted. Alarms set and audible. Vent plugged into red outlet. Pt transported to ICU 256 and placed on [facility] vent on ordered settings AC, rate 18, VT 450, 100%, PEEP +5 @0620. Low volumes noted, Pt reintubated with 7.0 ETT secured at 25cm at the lip line. CO2 color change noted. Mist in tube noted. Equal breath sounds and equal chest rise noted. Multiple RTs at bedside. Addendum: 07/30/21 at 0726 by LILLIAN SOW RT Amended: Links added.
--- NOTE | 2021-07-30 06:33 | NUR ---
RN notes Called Pt's sister Torres Simon [phone]. Left a message.
--- NOTE | 2021-07-30 06:35 | NUR ---
RN notes Called Pt's sister for the second time.
[2021-07-30] MEDS ORDERED: NOREPINEPHRINE 8MG/250ML RTU 250 ML IV ONE (06:36)
--- NOTE | 2021-07-30 06:38 | NUR ---
RN notes Called [facility] and spoke with Laura to asked about Pt's sister. Laura informed Pt's sister is Torres Simon [phone]
[2021-07-30] MEDS ORDERED: EPINEPHRINE (1:10,000) SYRINGE 1 MG/10 ML DISP.SYRIN IVP ONE ×3 (06:40→14:59)
[2021-07-30] MEDS ORDERED: SODIUM BICARBONATE SYR 50 MEQ/50 ML DISP.SYRIN IV ONE (06:40)
--- NOTE | 2021-07-30 06:43 | NUR ---
RN notes Called Pt's sister Aurora [phone] for three times.
[2021-07-30] MEDS ORDERED: NOREPINEPHRINE 32 MG in IV NS 0.9% 218 ML IV PRN (07:00)
[2021-07-30] MEDS ORDERED: EPINEPHRINE (1:1000) 5 MG in IV NS 0.9% 245 ML IV PRN (07:00)
--- NOTE | 2021-07-30 07:15 | NUR ---
CHECKER IN PT WAS TRANSFERRED TO ICU @ 10.22 FROM ROOM 309 AFTER ACTIVATING CODE BLUE @ 05.50. @ 3 [place] UN[facility]. /SEE CODE BLUE CHARTING./ @ 10 24. PT CODED AGAIN. /SEE NEXT CODE BLUE CHARTING/. PT @ . PRONOUNCED BY ZOE MILIAN MD. [facility] WAS CALLED. CASE # [id number]. /GIVEN BY GRECIA/.
[2021-07-30] MEDS ORDERED: Sodium Bicarbonate 50 MEQ/50 ML VIAL IV ONE (14:58)
== END 2021-07-30 15:27 | DRG 377 ==
LOC: ER 09:21 → TRANSITION 11:28 → TELE 13:38 → MED 18:37 → ICU 07-30 06:17
PROVIDERS: ADMIT Internal Medicine; ATTEND Internal Medicine
PROC: 5A2204Z Restoration of Cardiac Rhythm, Single (ICD-10-PCS; principal; 2021-07-30)
PROC: 0BH17EZ Insertion of Endotracheal Airway into Trachea, Via Natural or Artificial Opening (ICD-10-PCS; 2021-07-30)
DX: K92.2 Gastrointestinal hemorrhage, unspecified (principal); N18.6 End stage renal disease; I12.0 Hypertensive chronic kidney disease with stage 5 chronic kidney disease or end stage renal disease; J90 Pleural effusion, not elsewhere classified; J98.11 Atelectasis; K21.9 Gastro-esophageal reflux disease without esophagitis; Z86.73 Personal history of transient ischemic attack (TIA), and cerebral infarction without residual deficits; Z20.822 Contact with and (suspected) exposure to COVID-19; E11.3299 Type 2 diabetes mellitus with mild nonproliferative diabetic retinopathy without macular edema, unspecified eye; E11.22 Type 2 diabetes mellitus with diabetic chronic kidney disease; E78.5 Hyperlipidemia, unspecified; Z79.899 Other long term (current) drug therapy; Z99.2 Dependence on renal dialysis; Z79.4 Long term (current) use of insulin; K80.20 Calculus of gallbladder without cholecystitis without obstruction; Z87.2 Personal history of diseases of the skin and subcutaneous tissue; Z89.512 Acquired absence of left leg below knee; Z90.79 Acquired absence of other genital organ(s); Z88.0 Allergy status to penicillin; Z91.041 Radiographic dye allergy status; E11.42 Type 2 diabetes mellitus with diabetic polyneuropathy; Z91.040 Latex allergy status; K52.9 Noninfective gastroenteritis and colitis, unspecified
CPT/HCPCS: 36415; 71045-TC; 71250-TC; 80048-TC; 80076-TC; 82962-TC; 85025-TC; 85730-TC; 86850-TC; 87081-TC; C9113; G0378; J0171; J1815; J2270; J3490; J7040; J7050